=== PATIENT | female | born 1990 | race Caucasian/White ===

== ENCOUNTER 2017-09-15 15:30 | Outpatient (RCR) | payer OTHER ==
[2016-12-09 13:35] VITALS: BMI 40.4
--- NOTE | 2017-09-01 16:14 | PT INITIAL EVALUATION ---
MEDICAL DIAGNOSIS: L knee ACL debridement, medial meniscectomy, chondroplasty of patella TREATMENT DIAGNOSIS: same, altered gait DATE OF ONSET: 07/02/17 SUBJECTIVE: Marlyn presents to physical therapy s/p medical meniscectomy, ACL debridement, and chondroplasty of patella approximately two weeks ago. She reports that she injured her L knee the second time while jumping on a trampoline and partially torn her L ACL. She states that her main complaint even before the surgical intervention was that her L knee hyperextended randomly. She reports that her L knee has a dull ache that feels a little warm , but feels like the swelling has dissipated. She states that the dull ache becomes more intense with increased knee flexion and feels better with knee extension. She reports that she has been focusing on improving movement and gait mechanics and has not started with strengthening. She states that her L quad feels super weak. She states that this knee problem has been going on for about 3 years. She states that she has been feeling a strange snapping/popping in the anterior knee when sitting down in a chair. REHAB PROBLEM LIST: Increased Pain Decreased ROM Decreased Strength Decreased Endurance Decreased Balance Decreased Function Decreased ADL's Decreased Gait PREVIOUS MEDICAL HISTORY: See EMR OCCUPATION: FORMERLY [employer], LATER [employer] OBJECTIVE: Posture: She demonstrated normal postural mechanics. ROM: L knee AROM: 0-125 degrees. L knee PROM: -1-0-125 degrees. Strength: 0 degrees of lag Palpation: TTP: medial joint line Special Tests: Moderate accessory mobility limitation with patella superiorly and inferiorly, moderate incisional restrictions, minimal to moderate limitation with accessory joint mobility, Mobility: Independent Gait: She demonstrated the following gait mechanics without an AD: antalgic gait, decreased R step length, decreased velocity, increased stance phases of gait, decreased swing phases of gait, normal base of support, normal B foot clearance, and decreased pelvic rotation. ASSESSMENT: Marlyn will benefit from skilled physical therapy addressing the listed impairments to improve function and return to prior level of function. Short Term Goals 6 weeks: Pt will improve quad strength from baseline to full 5/5 with 0 lag to improve function and QOL. 6 weeks: Pt will improve gait mechanics from antalgic gait to full normal gait mechanics with 0/10 to improve function and QOL. 6 weeks: Pt will improve core and B LE strength from baseline to 4+/5 to improve function and return to prior functional activities. Patient's Goals reduce pain with gait, return to crossfit PLAN: Patient to be seen for Manual Therapy/STM/MET Strengthening/condition Range of Motion Spinal Stabilization Work Hardening/Cond Stretching Neuromuscular Re-ed Closed Chain Program Gait Trg/Balance Trg Home Exercise Program Therapeutic Activities 2x/Week for 6 Weeks If you have any questions, comments, or concerns about this report or plan, please contact me at . Thank you, Judah Dumont, PT, DPT MTDD
[~2017-09-15 15:30] MED LIST: IBUP800T37 PO; LOR5/325 PO; NORE1PAT TD; NORE1PAT3; ONDA4TAB PO; PER PO; PREN1TAB44
--- NOTE | 2017-10-12 10:20 | PT PLAN OF CARE ---
Physician: Kendrick Overton MD Patient is being seen: 1x/week Therapist: Judah Dumont, PT, DPT Medical Diagnosis: L knee ACL debridement, medial meniscectomy, chondroplasty of patella Treatment Diagnosis: same, altered gait Date of Onset: 07/02/17 Date of Initial Evaluation: 09/01/17 Date patient was last seen: 09/15/17 Number of treatments: 3 Number of cancellations/No shows: 0 INTERVENTIONS: Manual Therapy/STM/MET Strengthening/condition Range of Motion Spinal Stabilization Work Hardening/Cond Stretching Neuromuscular Re-ed Closed Chain Program Gait Trg/Balance Trg Home Exercise Program Therapeutic Activities GOALS: 6 weeks: Pt will improve quad strength from baseline to full 5/5 with 0 lag to improve function and QOL. 6 weeks: Pt will improve gait mechanics from antalgic gait to full normal gait mechanics with 0/10 to improve function and QOL. 6 weeks: Pt will improve core and B LE strength from baseline to 4+/5 to improve function and return to prior functional activities. PATIENT'S GOAL: reduce pain with gait, return to crossfit Status of Patient's Goals: unknown Patient Compliance: Fair Prognosis: Good Reasons for discontinuing therapy: This is a discharge note for Marlyn Martinez. On last contact with her, she demonstrated improvements with quad contraction and could perform a quad contraction without the use of NMES. However, she continued to have the popping/grabbing sensation with sit to/from standings or can occur randomly. We were unable to receive any discharge numbers to track progress since she called and said that she could not come back after the new year since her insurance resets. As a result, she will be discharged from formal PT to [facility]. Posture: She demonstrated normal postural mechanics. ROM: L knee AROM: 0-125 degrees. L knee PROM: -1-0-125 degrees. Strength: 0 degrees of lag Palpation: TTP: medial joint line Special Tests: Moderate accessory mobility limitation with patella superiorly and inferiorly, moderate incisional restrictions, minimal to moderate limitation with accessory joint mobility, Mobility: Independent If you have any questions, please contact me at [phone]. Thank you, Judah Dumont, PT, DPT [facility]
== END 2017-09-15 18:00 | disposition home or self-care (01) ==
LOC: PT 15:30
PROVIDERS: ATTEND Orthopaedic Surgery
DX: Z47.89 Encounter for other orthopedic aftercare (principal); M23.232 Derangement of other medial meniscus due to old tear or injury, left knee; M25.562 Pain in left knee; Y93.44 Activity, trampolining
CPT/HCPCS: 97161

== ENCOUNTER → 2018-11-17 | Outpatient (CLI) | payer OTHER ==
[2016-12-09 13:35] VITALS: BMI 40.4
[~2018-11-17] MED LIST changes: +NORE1PAT3 TD; +POLY10DR20 OP; +SULF-198 PO
== END ==
LOC: LAB 16:32
PROVIDERS: ATTEND Student in an Organized Health Care Education/Training Program
DX: R30.0 Dysuria (principal); B96.20 Unspecified Escherichia coli [E. coli] as the cause of diseases classified elsewhere
CPT/HCPCS: 87077; 87088; 87186

== ENCOUNTER 2019-02-11 21:24 | Emergency (ER) | payer OTHER ==
[2016-12-09 13:35] VITALS: Wt 90.7 kg
--- NOTE | 2019-02-11 21:28 | ER Report ---
History and Physical Time Seen By MD: 21:27 HPI/ROS CHIEF COMPLAINT: Left upper quadrant HISTORY OF PRESENT ILLNESS: 29-year-old female presents with abdominal pain since last evening. This afternoon at 2 PM and became quite intense. She notes crampy, sharp 7/10 pain in her left flank in the left middle quadrant. Patient notes no nausea, vomiting or diarrhea. Patient states last bowel movement was today. Patient denies dysuria, frequency or hematuria. Last menstrual period was 3 weeks ago. She wears a control patch REVIEW OF SYSTEMS: Respiratory: No cough, no dyspnea. Cardiovascular: No chest pain, no palpitations. Gastrointestinal: As above Musculoskeletal: No back pain. Allergies: Coded Allergies: No Known Drug Allergies (Verified , 02/11/19) Home Meds Active Scripts Norelgestromin/Ethin.estradiol (Xulane Patch) 1 Each Patch.tdwk, 1 PATCH TD QWEEK, #4 PATCH.WK 12 Refills Prov:PRABHA MCFADDEN DO 05/03/18 Discontinued Scripts Sulfamethoxazole/Trimet 800-160 Mg Tab (BACTRIM DS TABLET) 1 Each Tablet, 1 TAB PO BID for 3 Days, #6 TAB 0 Refills Prov:PRABHA MCFADDEN DO 11/17/18 Reviewed Nurses Notes: Yes Old Medical Records Reviewed: Yes Hx Smoking: No Smoking Status: Never Smoker Exposure to Second Hand Smoke?: No Hx Substance Use Disorder: No Hx Alcohol Use: No Constitutional Vital Sign - Last 24 Hours 02/11/19 02/11/19 02/11/19 02/11/19 21:32 21:32 21:54 22:00 Temp 98.9 Pulse 97 85 Resp 16 B/P (MAP) 126/102 126/102 (110) 100/70 (80) Pulse Ox 95 93 O2 Delivery Room Air Physical Exam General Appearance: The patient is alert, has no immediate need for airway protection and no current signs of toxicity. Vital signs stable, afebrile, pulse ox normal Eyes: Pupils equal and round no injection. Respiratory: Chest is non tender, lungs are clear to auscultation. Cardiac: regular rate and rhythm Gastrointestinal: Abdomen is soft. There is moderate tenderness in the left upper quadrant and the left mid quadrant. There is no CVA tenderness, no masses appreciated, bowel sounds normal. Musculoskeletal: Neck: Neck is supple and non tender. Extremities have full range of motion and are non tender. Skin: No rashes or lesions. DIFFERENTIAL DIAGNOSIS: After history and physical exam differential diagnosis was considered for abdominal pain including but not limited to appendicitis, cholecystitis, gastritis and urinary tract infection. Medical Decision Making Data Points Result Diagram: 02/11/19213202/11/192132 Laboratory Hematology Test 02/11/19 21:28 02/11/19 21:33 Urine Color Yellow Urine Clarity Clear Urine pH 6.0 pH (4.8-9.5) Urine Specific [place] 1.019 Urine Protein Negative mg/dL (NEGATIVE) Urine Glucose (UA) Negative mg/dL (NEGATIVE) Urine Ketones Negative mg/dL (NEGATIVE) Urine Blood Negative (NEGATIVE) Urine Nitrite Negative (NEGATIVE) Urine Bilirubin Negative (NEGATIVE) Urine Urobilinogen Negative mg/dL (0.2-1.9) Urine Leukocyte Esterase Negative (NEGATIVE) Urine RBC 2 /HPF (0-2/HPF) Urine WBC 2 /HPF (0-5/HPF) Urine Squamous Epithelial Cells Many /LPF (</=FEW) Urine Bacteria Negative /HPF (NONE-FEW) Urine Mucus None /HPF (NONE-FEW) Urine HCG, Qualitative Negative (NEGATIVE) Red Blood Count 5.39 M/uL (4.17-5.56) Mean Corpuscular Volume 86.1 fL (80.0-96.0) Mean Corpuscular Hemoglobin 29.7 pg (26.0-33.0) Mean Corpuscular Hemoglobin Concent 34.5 g/dL (32.0-36.0) Red Cell Distribution Width 12.9 % (11.5-14.5) Mean Platelet Volume 9.1 fL (7.2-11.1) Neutrophils (%) (Auto) 42.8 % (39.4-72.5) Lymphocytes (%) (Auto) 48.7 % (17.6-49.6) Monocytes (%) (Auto) 7.7 % (4.1-12.4) Eosinophils (%) (Auto) 0.6 % (0.4-6.7) Basophils (%) (Auto) 0.2 % (0.3-1.4) Nucleated RBC Relative Count (auto) 0.1 /100WBC Neutrophils # (Auto) 3.0 K/uL (2.0-7.4) Lymphocytes # (Auto) 3.4 K/uL (1.3-3.6) Monocytes # (Auto) 0.5 K/uL (0.3-1.0) Eosinophils # (Auto) 0.0 K/uL (0.0-0.5) Basophils # (Auto) 0.0 K/uL (0.0-0.1) Nucleated RBC Absolute Count (auto) 0.01 K/uL Sodium Level 139 mmol/L (137-145) Potassium Level 3.3 mmol/L (3.5-5.0) Chloride Level 102 mmol/L (98-107) Carbon Dioxide Level 28 mmol/L (22-31) Blood Urea Nitrogen 15 mg/dl (7-18) Creatinine 0.70 mg/dl (0.52-1.04) Glomerular Filtration Rate Calc > 60.0 Random Glucose 98 mg/dl (75-110) Calcium Level 9.7 mg/dl (8.4-10.2) Total Bilirubin < 0.1 mg/dl (0.2-1.3) Aspartate Amino Transf (AST/SGOT) 23 U/L (0-35) Alanine Aminotransferase (ALT/SGPT) 19 U/L (0-56) Alkaline Phosphatase 83 U/L (0-126) Total Protein 7.8 g/dl (6.3-8.2) Albumin 4.5 g/dl (3.5-5.0) Amylase Level 89 U/L (0-110) Lipase 104 U/L (23-300) Chemistry Test 02/11/19 21:28 02/11/19 21:33 Urine Color Yellow Urine Clarity Clear Urine pH 6.0 pH (4.8-9.5) Urine Specific [place] 1.019 Urine Protein Negative mg/dL (NEGATIVE) Urine Glucose (UA) Negative mg/dL (NEGATIVE) Urine Ketones Negative mg/dL (NEGATIVE) Urine Blood Negative (NEGATIVE) Urine Nitrite Negative (NEGATIVE) Urine Bilirubin Negative (NEGATIVE) Urine Urobilinogen Negative mg/dL (0.2-1.9) Urine Leukocyte Esterase Negative (NEGATIVE) Urine RBC 2 /HPF (0-2/HPF) Urine WBC 2 /HPF (0-5/HPF) Urine Squamous Epithelial Cells Many /LPF (</=FEW) Urine Bacteria Negative /HPF (NONE-FEW) Urine Mucus None /HPF (NONE-FEW) Urine HCG, Qualitative Negative (NEGATIVE) White Blood Count 7.0 k/uL (4.5-11.0) Red Blood Count 5.39 M/uL (4.17-5.56) Hemoglobin 16.0 g/dL (12.0-16.0) Hematocrit 46.4 % (34.0-47.0) Mean Corpuscular Volume 86.1 fL (80.0-96.0) Mean Corpuscular Hemoglobin 29.7 pg (26.0-33.0) Mean Corpuscular Hemoglobin Concent 34.5 g/dL (32.0-36.0) Red Cell Distribution Width 12.9 % (11.5-14.5) Platelet Count 273 K/uL (150-450) Mean Platelet Volume 9.1 fL (7.2-11.1) Neutrophils (%) (Auto) 42.8 % (39.4-72.5) Lymphocytes (%) (Auto) 48.7 % (17.6-49.6) Monocytes (%) (Auto) 7.7 % (4.1-12.4) Eosinophils (%) (Auto) 0.6 % (0.4-6.7) Basophils (%) (Auto) 0.2 % (0.3-1.4) Nucleated RBC Relative Count (auto) 0.1 /100WBC Neutrophils # (Auto) 3.0 K/uL (2.0-7.4) Lymphocytes # (Auto) 3.4 K/uL (1.3-3.6) Monocytes # (Auto) 0.5 K/uL (0.3-1.0) Eosinophils # (Auto) 0.0 K/uL (0.0-0.5) Basophils # (Auto) 0.0 K/uL (0.0-0.1) Nucleated RBC Absolute Count (auto) 0.01 K/uL Glomerular Filtration Rate Calc > 60.0 Calcium Level 9.7 mg/dl (8.4-10.2) Total Bilirubin < 0.1 mg/dl (0.2-1.3) Aspartate Amino Transf (AST/SGOT) 23 U/L (0-35) Alanine Aminotransferase (ALT/SGPT) 19 U/L (0-56) Alkaline Phosphatase 83 U/L (0-126) Total Protein 7.8 g/dl (6.3-8.2) Albumin 4.5 g/dl (3.5-5.0) Amylase Level 89 U/L (0-110) Lipase 104 U/L (23-300) Urinalysis Test 02/11/19 21:28 Urine Color Yellow Urine Clarity Clear Urine pH 6.0 pH (4.8-9.5) Urine Specific [place] 1.019 Urine Protein Negative mg/dL (NEGATIVE) Urine Glucose (UA) Negative mg/dL (NEGATIVE) Urine Ketones Negative mg/dL (NEGATIVE) Urine Blood Negative (NEGATIVE) Urine Nitrite Negative (NEGATIVE) Urine Bilirubin Negative (NEGATIVE) Urine Urobilinogen Negative mg/dL (0.2-1.9) Urine Leukocyte Esterase Negative (NEGATIVE) Urine RBC 2 /HPF (0-2/HPF) Urine WBC 2 /HPF (0-5/HPF) Urine Squamous Epithelial Cells Many /LPF (</=FEW) Urine Bacteria Negative /HPF (NONE-FEW) Urine Mucus None /HPF (NONE-FEW) Urine HCG, Qualitative Negative (NEGATIVE) ED Course/Re-evaluation Clinical Indication for ER IV: IV Access ED Course Patient was admitted to an examination room. H&P was done. The differential diagnoses was considered. Patient with left flank pain. She is also having some left upper quadrant abdominal pain. Patient notes no nausea, vomiting, diarrhea or constipation. She notes no dysuria, frequency or hematuria. Patient was diagnosed with urinary tract infection several weeks ago and completed a short course of Bactrim DS. Patient reports these symptoms are similar to that. Patient's vital signs are stable. Peripheral IV is established. Diagnostic blood studies were sent off. As well as urinalysis, all studies are unremarkable except for low potassium of 3.2. Patient's informed of her results. We did discuss the option of doing a CT scan with contrast to better evaluate the etiology of her pain. I do not think she is a kidney stone. She has no CVA tenderness. She does have some tenderness in the left upper quadrant. Patient is reluctant to go under any further diagnostic studies. A do not think they are indicated at this point. Patient be discharged home on Tylenol and ibuprofen to follow-up with her primary care if unimproved in 3-5 days. Patient was offered medicine for nausea control, but she's had no nausea to this point. Decision to Disposition Date: February 11, 2019 Decision to Disposition Time: 22:15 Depart Departure Latest Vital Signs Vital Signs Date Time Temp Pulse Resp B/P (MAP) Pulse Ox O2 Delivery O2 Flow Rate FiO2 02/11/19 22:00 100/70 (80) 02/11/19 21:54 85 93 02/11/19 21:32 98.9 16 Room Air Impression: Primary Impression: Left flank pain Condition: Improved Disposition: HOME OR SELF-CARE Referrals: PRABHA MCFADDEN DO (PCP) Patient Instructions: Flank Pain (ED) Additional Instructions: Take ibuprofen 200 mg 3 tablets 3 times a day Rest your intestines with clear liquid diet for 24 hours Follow-up with your primary care if unimproved in 2-3 days Return to the ER for any worsening SHABANA WHITE DO February 11, 2019 21:28
[2019-02-11 22:00] VITALS: BP 100/70
[2019-02-11 22:03] LABS: PLATELET COUNT, AUTOMATED 273 K/uL (150-450)
== END 2019-02-11 22:24 | disposition home or self-care (01) ==
LOC: ER 21:28
DX: R10.12 Left upper quadrant pain (principal); E87.6 Hypokalemia
CPT/HCPCS: 81001; 81025; 82040; 82150; 82247; 82310; 82374; 82435; 82565; 82947; 83690; 84075; 84132; 84155; 84295; 84450; 84460; 84520; 85025; 99282